=== PATIENT | female | born 2000 | race Caucasian/White ===

== ENCOUNTER 2020-12-21 10:39 | Emergency (ER) | payer BC, SELFPAY ==
[2020-12-21 10:54] VITALS: BP 118/66; PULSE 75; RESP 18; TEMP 36.9; O2SAT 100
--- NOTE | 2020-12-21 10:57 | ED.SKABFB ---
HPI - Skin/Abscess/Foreign Bdy General Chief complaint: Skin/Abscess/Foreign Body Stated complaint: rash Time Seen by Provider: 12/21/20 10:57 Source: patient and family History of Present Illness HPI narrative: PATIENT PRESENT WITH AN ITCHY RASH TO HER HANDS AND FEET . PATIENT NOTICED RASH 2 DAYS AGO. PATIENT DENIES ANY CHANGE IN LIFESTYLE. NO RESP ISSUES. PATIENT DID TRY ZYRTEC WITH MINIMAL RELIEF. PATIENT STATES THE ITCHING IS INTENSE.. MD complaint: rash Related Data Home Medications Medication Instructions Recorded Confirmed bromocriptine 2.5 mg PO DAILY 12/21/20 12/21/20 ergocalciferol (vitamin D2) 1,250 mcg PO WEEKLY 12/21/20 12/21/20 Allergies Allergy/AdvReac Type Severity Reaction Status Date / Time No Known Allergies Allergy Verified 12/21/20 10:51 Review of Systems Review of Systems: Narrative: CONSTITUTIONAL: Denies fever, chills, or sweats. EYES: Denies visual changes, redness, or discharge. ENT: Denies rhinorrhea, congestion, sore throat, or otalgia. CARDIOVASCULAR: Denies chest pain, palpitations, or edema. RESPIRATORY: Denies cough or dyspnea. GASTROINTESTINAL: Denies abdominal pain, nausea, vomiting, or diarrhea. GENITOURINARY: Denies dysuria or hematuria. SKIN: ITCHY RASH TO FINGERS AND BETWEEN FINGERS AND TO FEET. MUSCULOSKELETAL: Denies back pain, joint pain, or myalgia. NEUROLOGIC: Denies headache, numbness, or weakness. PSYCHIATRIC: Denies anxiety or depression. PMFSH Social History Social History Gender identity (if verbalized by the patient): Female Comments At time of signature, agree with nursing past medical, surgical, social and family history. There is no relevant family history pertinent to the presenting complaint Exam Narrative: Exam Narrative: GENERAL: Well-appearing, well-nourished, and in no acute distress. HEAD: Normocephalic, atraumatic. EYES: PERRLA and EOMI. ENT: Nares clear, no rhinorrhea or epistaxis. Mucous membranes moist. NECK: Supple. CHEST: Clear to auscultation. No respiratory distress. HEART: Regular rate and rhythm. No murmur heard. Normal peripheral pulses. ABDOMEN: Soft, nontender, nondistended, normal active bowel sounds. EXTREMITIES: Normal range of motion. No edema. SKIN: Warm, dry,FLUID FILLED BLISTERS ON FINGERS AND PALMS OF HANDS AND SOLES OF FEET INTENSELY ITCHY BLISTERS. NEURO: No focal deficits. Alert and oriented x3. Alan Coma Scale Eye Opening: Spontaneous 4 Cunningham Coma Scale Motor: Obeys Commands 6 Cunningham Coma Scale Verbal: Oriented 5 Alan Coma Scale Total 15 Course Vital Signs Vital signs: Vital Signs Temperature 36.9 C 12/21/20 10:54 Pulse Rate 75 12/21/20 10:54 Respiratory Rate 18 12/21/20 10:54 Blood Pressure 118/66 12/21/20 10:54 Pulse Oximetry 100 12/21/20 10:54 Temperature 36.9 C 12/21/20 10:54 Pulse Rate 75 12/21/20 10:54 Respiratory Rate 18 12/21/20 10:54 Blood Pressure 118/66 12/21/20 10:54 Pulse Oximetry 100 12/21/20 10:54 MDM - Skin/Abscess/Foreign Bdy Differential Diagnosis Differential diagnosis: Likely abscess of skin or subcutaneous tissue, viral exanthem, dermatophytosis, urticaria, herpes zoster, allergic reaction to drug, cellulitis, eczema, insect bites, impetigo and contact dermatitis Critical Care Time Critical Care Time Critical Care Time: No Discharge Plan Discharge Clinical Impression: Dermatitis, dyshidrotic Patient Disposition: Home, Self-Care Condition: Stable Instructions: Antibiotic Form, Dyshidrotic Eczema (ED) Additional Instructions: Please apply Eucerin cream 1-2 times daily. This is most effective directly after a bath when the skin is still damp to trap the moisture. For itching areas, you can apply steroid cream as prescribed by your provider. Administer Benadryl at bedtime to help with itching. FOLLOW UP WITH PRIMARY CAR PROVIDER NEEDED FOR RE EVALUATION -If you have any worsening of symptoms or any other concerns please
[2020-12-21] MEDS: methylPREDNISolone ACETATE 40 MG/ML VIAL IM (11:12)
== END 2020-12-21 11:30 | disposition home or self-care (01) ==
PROVIDERS: Emergency Provider Nurse Practitioner Family
DX: L30.1 Dyshidrosis [pompholyx] (principal); R73.03 Prediabetes
CPT/HCPCS: 96372; 99213; G0463; J1030

== ENCOUNTER 2021-09-13 11:01 | Emergency (ER) | payer BC, SELFPAY ==
[2021-09-13 11:17] VITALS: BP 111/72; PULSE 89; RESP 18; TEMP 36.6; O2SAT 100
--- NOTE | 2021-09-13 11:43 | ED.GENADULT ---
HPI - General Adult General Chief complaint: Nausea/Vomiting/Diarrhea Stated complaint: upper abdomen pain Time Seen by Provider: 09/13/21 11:43 Source: patient Mode of arrival: ambulatory Limitations: no limitations History of Present Illness HPI narrative: 20-year-old female patient presents to the [facility] with complaints of abdominal pain for the past 2 days weeks with vomiting. Patient states that she has not been able to keep much down over the past 2 weeks and states that when she does try to eat she has some epigastric pain. Patient also complaining of pain to the left side of her abdomen. Patient states her last period was May and states that she recently got her Implanon change. Denies at this time. Patient states she is also had some diarrhea. Patient does admit to drinking alcohol prior to the abdominal pain starting but states she does not consider herself a heavy drinker. Patient states she has had decreased urine output. Denies fevers, body aches or chills. Related Data Home Medications Medication Instructions Recorded Confirmed bromocriptine 2.5 mg PO DAILY 12/21/20 09/13/21 etonogestrel [Nexplanon] See Rx Instructions .ROUTE .COMPLEX 12/21/20 09/13/21 Allergies Allergy/AdvReac Type Severity Reaction Status Date / Time No Known Allergies Allergy Verified 09/13/21 11:36 Review of Systems Review of Systems: CONSTITUTIONAL: Denies fever, chills, or sweats. EYES: Denies visual changes, redness, or discharge. ENT: Denies rhinorrhea, congestion, sore throat, or otalgia. CARDIOVASCULAR: Denies chest pain, palpitations, or edema. RESPIRATORY: Denies cough or dyspnea. GASTROINTESTINAL: Positive abdominal pain, nausea, vomiting, and diarrhea. GENITOURINARY: Denies dysuria or hematuria. SKIN: Denies rash or itching. MUSCULOSKELETAL: Denies back pain, joint pain, or myalgia. NEUROLOGIC: Denies headache, numbness, or weakness. PSYCHIATRIC: Denies anxiety or depression. [facility] Past Medical History Medical History Implanon in place Social History Social History Gender identity (if verbalized by the patient): Female Comments At the time of my signature I agree with nursing past medical history, surgical, social, and family history. There is no relevant family history pertinent to the presenting complaint. Exam Narrative: GENERAL: Well-appearing, well-nourished, and in no acute distress. HEAD: Normocephalic, atraumatic. EYES: PERRLA and EOMI. ENT: Nares clear, no rhinorrhea or epistaxis. Mucous membranes moist. NECK: Supple. No lymphadenopathy CHEST: Clear to auscultation. No respiratory distress. HEART: Regular rate and rhythm. No murmur heard. Normal peripheral pulses. ABDOMEN: Soft, flat, nondistended. No guarding, rebound tenderness, or rigid. No pulsatilla masses. Bowel sounds present in all four quadrants. Tenderness noted on palpation to the epigastric area left upper quadrant and left lower quadrant. No organomegaly. Negative Askew?s sign. No periumbicial tenderness. No Supra public tenderness or distension. Good femoral pulses bilaterally. No hernia noted. No scars or surface trauma. EXTREMITIES: Normal range of motion. No edema. SKIN: Warm, dry, no rash. NEURO: No focal deficits. Alert and oriented x3. Course Course Level of Care: [facility] Visit Vital Signs Vital signs: Vital Signs Temperature 36.6 C 09/13/21 11:17 Pulse Rate 89 09/13/21 11:17 Respiratory Rate 18 09/13/21 11:17 Blood Pressure 111/72 09/13/21 11:17 Pulse Oximetry 100 09/13/21 11:17 Temperature 36.6 C 09/13/21 11:17 Pulse Rate 89 09/13/21 11:17 Respiratory Rate 18 09/13/21 11:17 Blood Pressure 111/72 09/13/21 11:17 Pulse Oximetry 100 09/13/21 11:17 Vital signs reviewed Transfer Transfered to: [facility] Transportation: Other (Private vehicle) Transfer rationale: Abdominal pain x2 weeks with vomiting Accep
== END 2021-09-13 11:57 | disposition short-term general hospital (02) ==
PROVIDERS: Emergency Provider Nurse Practitioner Family
DX: R10.12 Left upper quadrant pain (principal)
CPT/HCPCS: 81003; 81025; 99212; G0463

== ENCOUNTER 2021-09-13 12:14 | Emergency (ER) | payer BC, SELFPAY ==
--- NOTE | ~2021-09-13 | CT_ITS ---
EXAMINATION: CT abdomen pelvis w con DATE: 09/13/2021 14:19 INDICATION: Abdominal pain for 2 weeks TECHNIQUE: Computed tomography (CT) of the abdomen and pelvis was performed with 100 cc Omnipaque 350 intravenous contrast. The dose-length product was 238.97 mGy-cm. Automated exposure control and iter ative reconstruction technique were employed. COMPARISON: None. FINDINGS: Lung bases are unremarkable. Heart size normal. No significant pleural or pericardial effus ion. No significant vascular abnormality. No lymphadenopathy. The liver, spleen, pancreas, adrenal gl ands and kidneys are unremarkable. Gallbladder is present nonobstructive bowel gas pattern. No lympha denopathy. No free air or free fluid. IMPRESSION: 1. No acute abdominal abnormality. Reviewed, dictated and finalized at location A.
[2021-09-13 12:16] VITALS: BP 133/91; PULSE 96; RESP 16; TEMP 36.4; O2SAT 99
--- NOTE | 2021-09-13 12:49 | ED.NAVMDI ---
HPI - Nausea/Vomiting/Diarrhea General Chief complaint: Nausea/Vomiting/Diarrhea Stated complaint: N/V Time Seen by Provider: 09/13/21 12:18 Source: RN notes reviewed History of Present Illness HPI Narrative: Patient presents emergency department from urgent care for abdominal pain. Patient has abdominal pain for the past 2 weeks. The pain is located left upper abdomen radiates down the left lower abdomen described as aching in nature. States is associate with nausea, vomiting, diarrhea. She denies any fevers or chills, denies any chest pain shortness of breath or any other symptoms. States she not take any medication for the symptoms today Related Data Home Medications Medication Instructions Recorded Confirmed bromocriptine 2.5 mg PO DAILY 12/21/20 09/13/21 etonogestrel [Nexplanon] See Rx Instructions .ROUTE .COMPLEX 12/21/20 09/13/21 Allergies Allergy/AdvReac Type Severity Reaction Status Date / Time No Known Allergies Allergy Verified 09/13/21 11:36 Review of Systems Review of Systems: Gen.: Denies fevers or chills ENT: Denies congestion Respiratory: Denies shortness of breath or cough CV: Denies chest pain or palpitations GI: See HPI Musculoskeletal: Denies back pain or muscle pain Neuro: Denies numbness, tingling, weakness or focal weakness Skin: Denies rash Except as documented, all other systems reviewed and negative [facility] Past Medical History Medical History Implanon in place Social History Social History (Updated 09/13/21 @ 12:50 by Vitaliy Torrez DO) Smoking status: Never smoker Gender identity (if verbalized by the patient): Female Exam Narrative: APPEARANCE: No acute distress, nontoxic, resting in bed HEENT: Normocephalic, atraumatic, OMM RESPIRATORY: No respiratory distress, clear to auscultation bilaterally with no rhonchi wheezing or rales CARDIOVASCULAR: RRR s murmur ABDOMINAL: Soft nondistended tender palpation left lower quadrant left lower quadrant no tenderness right upper quadrant right lower quadrant no rebound or guarding MUSCULOSKELETAl: Moves all extremities. No clubbing, cyanosis or edema. NEURO: Awake and alert. Following commands, speech normal, no focal deficits SKIN:: Warm, dry. Normal Color PSYCHIATRIC: Normal affect/mood Course Course Emergency Course: Patient states that they are feeling much better at this time. States abdominal pain has improved. Repeat abdominal exam shows the patient's abdomen to be soft with no surgical abdomen present. Discussed with patient results of workup and diagnosis. Discussed need for follow-up with primary care physician, reasons to return to the emergency department in proper use of medication. Patient understands and agrees to current treatment plan Vital Signs Vital signs: Vital Signs Temperature 97.6 F 09/13/21 12:16 Pulse Rate 96 09/13/21 12:16 Respiratory Rate 16 09/13/21 12:16 Blood Pressure 133/91 H 09/13/21 12:16 Pulse Oximetry 99 09/13/21 12:16 Temperature 97.6 F 09/13/21 12:16 Pulse Rate 61 09/13/21 14:48 Respiratory Rate 20 09/13/21 14:48 Blood Pressure 107/73 09/13/21 14:48 Pulse Oximetry 100 09/13/21 14:48 MDM - Nausea/Vomiting/Diarrhea MDM Narrative Medical decision making narrative: Patient's abdomen is soft without significant pain or signs of surgical abdomen on serial exams. Lab and x-ray evaluations are reviewed and patient is felt to be a reasonable candidate for outpatient management. Patient was instructed as to limitations of x-ray and laboratory evaluation and encouraged to return to ED or primary physician for repeat exam in 12 hours if continued or worsening pain Lab Data Result diagrams: 09/13/21 12:32 09/13/21 12:32 Labs: Lab Results 09/13/21 09/13/21 09/13/21 Range/Units 12:32 12:32 12:34 WBC 7.7 (4.5-10.0) K/mm3 RBC 5.29 (4.2-5.4) M/mm3 Hgb 16.3 H (12.0-15.0) g/dL Hct 47.8 H (37.0-47.0) % MCV 90.4
[2021-09-13 12:50] LABS: Basophils Percent Auto 0.3 % (0.2-1.2); Eosinophils Absolute Auto 0.1 K/mm3 (0-0.3); Eosinophils Percent Auto 0.8 % (0-4.4); Hematocrit 47.8 % (37.0-47.0); Hemoglobin 16.3 g/dL (12.0-15.0); Immature Granulocyte Absolute 0.01 K/mm3 (0.00-0.031); Immature Granulocyte Percent A 0.1 % (0-0.5); Lymphocytes Absolute Auto 2.87 K/mm3 (0.9-3.2); Lymphocytes Percent Auto 37.5 % (18.3-44.2); Mean Corpuscular HGB Conc 34.1 g/dl (32-36); Mean Corpuscular Hemoglobin 30.8 pg (26-34); Mean Corpuscular Volume 90.4 fl (80-100); Mean Platelet Volume 8.9 fl (7.4-10.4); Monocytes Absolute Auto 0.4 K/mm3 (0.1-0.6); Monocytes Percent Auto 5.2 % (2.6-8.5); Neutrophils Absolute Auto 4.3 K/mm3 (1.3-6.7); Neutrophils Percent Auto 56.1 % (45.5-73.1); Platelet Count Result 387 k/mm3 (150-375); Red Blood Count 5.29 M/mm3 (4.2-5.4); Red Cell Distribution Width 11.9 % (11.5-14.5); White Blood Count 7.7 K/mm3 (4.5-10.0)
[2021-09-13] MEDS: SODIUM CHLORIDE 0.9% IV 1,000 ML 999 ML IV CONT (12:56)
[2021-09-13] MEDS: ONDANSETRON INJ 4 MG/2 ML VIAL IV PUSH (12:56)
[2021-09-13 13:23] LABS: Add Urine Microscopic? YES; Appearance Urine Cloudy (Clear); Bacteria Urine Trace /hpf; Bilirubin Urine Negative (Negative); Blood Urine Negative (Negative); Color Urine Amber (Yellow); Glucose Urine UA Negative (Negative); Ketones Urine Trace mg/dL (Negative); Leukocyte Esterase Ur 3+ LEU/UL (Negative); Mucus Urine Few /lpf; Nitrate Urine Negative (Negative); Protein Urine 1+ mg/dL (Negative); Squamous Epithelial Cell Urine Many /hpf (Few); Urobilinogen Urine Negative mg/dL (<2.0); WBC Urine 16-20 /hpf
[2021-09-13 13:23] LABS: Alanine Aminotransferase 26 U/L (4-35); Albumin Level 4.8 g/dL (3.5-5.1); Alkaline Phosphatase 68 U/L (38-126); Anion Gap 9 mmol/L (8-16); Aspartate Amino Transferase 39 U/L (14-36); Bilirubin,Total 0.8 mg/dL (0.2-1.3); Blood Urea Nitrogen 13 mg/dL (7-17); Calcium 9.1 mg/dL (8.4-10.2); Carbon Dioxide 26 mmol/L (22-30); Chloride 103 mmol/L (98-107); Estimated Glomerular Filt Rate > 60; Glucose 106 mg/dL (65-110); Lipase 73 U/L (23-300); Potassium 3.3 mmol/L (3.4-5.0); Sodium 138 mmol/L (137-145)
[2021-09-13 13:37] LABS: Specific Grav Ur 1.033 (1.001-1.035)
[2021-09-13 14:48] VITALS: BP 107/73; PULSE 61; RESP 20; O2SAT 100
[2021-09-13] MEDS: CEPHALEXIN 500 MG CAPSULE PO (16:20)
[2021-09-13] MEDS: PANTOPRAZOLE SODIUM IV 40 MG VIAL IV PUSH (16:20)
[2021-09-13 16:24] VITALS: BP 134/78; PULSE 62; RESP 20; O2SAT 99
== END 2021-09-13 16:24 | disposition home or self-care (01) ==
PROVIDERS: Emergency Provider Emergency Medicine
DX: N39.0 Urinary tract infection, site not specified (principal); R10.13 Epigastric pain
CPT/HCPCS: 36415; 74177; 80053; 81001; 81003; 81025; 83690; 85025; 87086; 87088; 96361; 96365; 96375; 99284; A9270; C9113; J0131; J2405; J7030; Q9967

== ENCOUNTER 2021-12-11 13:14 | Emergency (ER) | payer BC, SELFPAY ==
--- NOTE | 2021-12-11 13:18 | ED.SKABFB ---
HPI - Skin/Abscess/Foreign Bdy General Chief complaint: Skin/Abscess/Foreign Body Stated complaint: Animal Bite Rt Hand Time Seen by Provider: 12/11/21 13:26 Source: patient, RN notes reviewed and old records reviewed Mode of arrival: ambulatory Limitations: no limitations History of Present Illness HPI narrative: 21-year-old female presents to the [facility] with a cat bite to the right hand yesterday. States that it was an acquaintance's cat is up-to-date on all shots. Bite to the medial aspect of hand between his first and second finger. Swelling, redness noted circumferential of the second finger, hands with streaking up to the axilla of right side. Patient states she was bit approximately 1330 yesterday. Puncture wounds noted. Patient reports being up-to-date on all immunizations. Patient reports unknown blood disorder, requesting blood work to be done, unable to do in the [facility]. Has taken Benadry. Onset (ago): hour(s) (24) Location: R hand Severity scale (1-10): 10 Pain Consistency: constant Relieving factors: none Exacerbating factors: none Related Data Home Medications Medication Instructions Recorded Confirmed etonogestrel 68 mg subdermal See Rx Instructions .Route .COMPLEX 12/21/20 09/13/21 implant (Nexplanon) Allergies Allergy/AdvReac Type Severity Reaction Status Date / Time No Known Allergies Allergy Verified 12/11/21 14:08 Review of Systems Review of Systems: All systems reviewed & are unremarkable except as noted in HPI and below Constitutional: Constitutional: Reports no additional constitutional complaints, Denies chills and Denies fever(s) Eyes: Eyes: Reports no additional eye complaints ENT: Reports system reviewed and no additional complaints, except as documented Cardiovascular: Cardiovascular: Reports no additional cardiovascular complaints Respiratory: Respiratory: Reports no additional respiratory complaints Gastrointestinal: Gastrointestinal: Reports no additional gastrointestinal complaints Musculoskeletal: Musculoskeletal: Reports as per HPI (decreased ROM finger 2nd. Numbness right 5th finger) Integumentary/Breasts: Skin/Breast: Reports as per HPI and Reports erythema (Right hand) Neurologic: Reports system reviewed and no additional complaints, except as documented Psychiatric: Psychiatric: Reports no additional psychiatric complaints Allergic/Immunologic: Allergic/Immunologic: Reports no additional allergic/immunologic complaints PMFSH Past Medical History Medical History Blood disorder per patient, Unknown specific Implanon in place Surgical History Surgical History (Updated 12/11/21 @ 13:36 by Marisa Hansen APRN) No history of previous surgery Social History Social History Smoking status: Never smoker Gender identity (if verbalized by the patient): Female Comments At the time of my signature, I reviewed and agree with the nursing past medical, surgical, social, and family history. There is no relevant family history pertinent to the patient complaint. Exam Const: General: healthy appearing, no acute distress and alert Nutritional Appearance: well nourished Orientation/consciousness: patient oriented x3 Limitations: no limitations HENMT: Head: normal to inspection Ears: external ears normal Eyes: General: appearance normal, both eyes and all related structures Pupils: Equal, round and reactive pupils present Neck: Neck: normal visual inspection, no lymphadenopathy and no meningeal signs Chest: Chest palpation & inspection: normal inspection of the chest Resp: Effort & Inspection: normal respiratory effort and no use of accessory muscles Auscultation: clear to auscultation bilaterally, no crackles, no rales, no rhonchi and no wheezes Cardio: Rate: regular rate Rhythm: regular rhythm Back/Spine/Pelvis: Cervical Spine: normal cervical lordosis Thoracic/Lumbar Spi
[2021-12-11 13:26] VITALS: BP 119/74; PULSE 113; RESP 18; TEMP 36.9; O2SAT 97
== END 2021-12-11 13:33 | disposition short-term general hospital (02) ==
PROVIDERS: Emergency Provider Nurse Practitioner
DX: S61.431A Puncture wound without foreign body of right hand, initial encounter (principal); L03.113 Cellulitis of right upper limb; W55.01XA Bitten by cat, initial encounter; L03.011 Cellulitis of right finger; R73.03 Prediabetes
CPT/HCPCS: 99212; G0463

== ENCOUNTER 2021-12-11 13:55 | Observation (INO) | payer BC, SELFPAY ==
--- NOTE | ~2021-12-11 | XR_ITS ---
XR hand RT min 3V DATE: 12/11/2021 15:01 INDICATION: Cat bite. Swelling and second metacarpal area. TECHNIQUE: 3 views COMPARISON: None FINDINGS: There is soft tissue swelling of the hand, particularly at the dorsal metacarpal area. No fracture, dislocation, periosteal reaction or bone destruction, erosive change or chondrocalcinosi s. Joint spaces are preserved. IMPRESSION: Soft tissue swelling Reviewed, dictated and finalized at location A. IMPRESSION: Soft tissue swelling
[2021-12-11 14:03] VITALS: BP 129/78; PULSE 80; RESP 16; TEMP 36.2; O2SAT 96
--- NOTE | 2021-12-11 14:24 | ED.ANIMALBIT ---
HPI - Animal Bite General Chief Complaint: Animal Bite Stated Complaint: cat bite Time Seen by Provider: 12/11/21 14:17 History of Present Illness HPI narrative: 21-year-old female presents to the ER today for evaluation of a cat bite to the right hand. She was bitten by her friend's cat yesterday. The cat is up-to-date on vaccinations. She started having swelling in the right hand and she now has red streaks going up her right arm to her armpit. Hand is very tender. She has not had any fever or chills. No nausea or vomiting. She was seen at an urgent care earlier today and sent to the ER for further evaluation due to the severity of the swelling in her hand. Related Data Home Medications Medication Instructions Recorded Confirmed etonogestrel 68 mg subdermal 1 mg DIRECTED 12/21/20 09/13/21 implant (Nexplanon) Allergies Allergy/AdvReac Type Severity Reaction Status Date / Time No Known Allergies Allergy Verified 12/11/21 14:08 Review of Systems Review of Systems: CONSTITUTIONAL: Denies fever, chills, or sweats. EYES: Denies visual changes, redness, or discharge. ENT: Denies rhinorrhea, congestion, sore throat, or otalgia. CARDIOVASCULAR: Denies chest pain, palpitations, or edema. RESPIRATORY: Denies cough or dyspnea. GASTROINTESTINAL: Denies abdominal pain, nausea, vomiting, or diarrhea. GENITOURINARY: Denies dysuria or hematuria. SKIN: As per HPI MUSCULOSKELETAL: Denies back pain, joint pain, or myalgia. NEUROLOGIC: Denies headache, numbness, dizziness, or weakness. PSYCHIATRIC: Denies anxiety or depression. PMFSH Past Medical History Medical History Blood disorder per patient, Unknown specific Implanon in place Surgical History Surgical History No history of previous surgery Social History Social History Smoking status: Never smoker Gender identity (if verbalized by the patient): Female Exam Narrative: GENERAL: Well-appearing, well-nourished, and in no acute distress. HEAD: Normocephalic, atraumatic. EYES: PERRLA and EOMI. NECK: Supple. No adenopathy or masses. No carotid bruits or JVD CHEST: Clear to auscultation. No respiratory distress. No wheezes rales or rhonchi HEART: Regular rate and rhythm. No murmur heard. Normal peripheral pulses. ABDOMEN: Soft, nontender, nondistended, normal active bowel sounds. EXTREMITIES: Moderate swelling and erythema to right hand SKIN: small puncture site between index finger and thumb of right hand, erytematous streaks tracking up right arm NEURO: No focal deficits. Alert and oriented x3. PSYCH: Normal mood and affect. Course Course Emergency Course: 1544 Discussed with Kyung BAUM, accepting patient for admission. Vital Signs Vital signs: Vital Signs Temperature 36.2 C L 12/11/21 14:03 Pulse Rate 80 12/11/21 14:03 Respiratory Rate 16 12/11/21 14:03 Blood Pressure 129/78 12/11/21 14:03 Pulse Oximetry 96 12/11/21 14:03 Oxygen Delivery Room Air 12/11/21 14:03 Temperature 36.2 C L 12/11/21 14:03 Pulse Rate 80 12/11/21 14:03 Respiratory Rate 16 12/11/21 14:03 Blood Pressure 129/78 12/11/21 14:03 Pulse Oximetry 96 12/11/21 14:03 Oxygen Delivery Room Air 12/11/21 14:03 MDM - Animal Bite Lab Data Attestation: I reviewed the patient's lab results. Result diagrams: 12/11/21 14:38 12/11/21 14:38 Labs: Lab Results 12/11/21 12/11/21 12/11/21 Range/Units 14:38 14:38 14:38 WBC 26.1 H (4.5-10.0) K/mm3 RBC 4.98 (4.2-5.4) M/mm3 Hgb 15.0 (12.0-15.0) g/dL Hct 44.4 (37.0-47.0) % MCV 89.2 (80-100) fl MCH 30.1 (26-34) pg MCHC 33.8 (32-36) g/dl RDW 12.8 (11.5-14.5) % Plt Count 301 (150-375) k/mm3 MPV 9.2 (7.4-10.4) fl Immature Gran % (Auto) Not Reportable Neut % (Auto) Not Reportable Lymph
[2021-12-11 15:02] LABS: Hematocrit 44.4 % (37.0-47.0); Mean Corpuscular HGB Conc 33.8 g/dl (32-36); Mean Corpuscular Hemoglobin 30.1 pg (26-34); Mean Corpuscular Volume 89.2 fl (80-100); Mean Platelet Volume 9.2 fl (7.4-10.4); Platelet Count Result 301 k/mm3 (150-375); Red Blood Count 4.98 M/mm3 (4.2-5.4); Red Cell Distribution Width 12.8 % (11.5-14.5); White Blood Count 26.1 K/mm3 (4.5-10.0)
[2021-12-11 15:13] LABS: Lactic Acid Reflex 1.4 mmol/L (0.7-2.0)
[2021-12-11 15:15] LABS: Alanine Aminotransferase 17 U/L (6-35); Albumin Level 4.8 g/dL (3.5-5.1); Alkaline Phosphatase 62 U/L (38-126); Anion Gap 11 mmol/L (8-16); Aspartate Amino Transferase 24 U/L (14-36); Bilirubin,Total 1.4 mg/dL (0.2-1.3); Blood Urea Nitrogen 11 mg/dL (7-17); CRP 6.3 mg/dL (<1.0); Calcium 8.9 mg/dL (8.4-10.2); Carbon Dioxide 23 mmol/L (22-30); Chloride 102 mmol/L (98-107); Estimated Glomerular Filt Rate > 60; Glucose 112 mg/dL (65-110); Potassium 3.5 mmol/L (3.4-5.0); Sodium 136 mmol/L (137-145)
[2021-12-11 15:24] LABS: Band Neutrophils Percent 5 % (0-6); Lymphocytes Absolute Manual 2.34 K/mm3 (1.1-4.5); Metamyelocytes Percent 1 %; Monocytes Absolute Manual 1.56 K/mm3 (0.1-0.90); Monocytes Percent Manual 6 % (3-9); Neutrophils Absolute Manual 21.92 K/mm3 (1.7-7.2); Neutrophils Percent Manual 79 % (46-73); Platelet Estimate Adequate (Adequate); Total Cells Counted 100
[2021-12-11] MEDS: AMPICILLIN SULB 3 GM/NS 100 ML 3 GM/100 ML VIAL IVPB (16:01)
[2021-12-11 16:06] VITALS: BP 130/84; PULSE 84; RESP 16; O2SAT 99
--- NOTE | 2021-12-11 16:30 | PM.IMHP ---
H&P: HPI History of Present Illness Date/Time: 12/11/21 16:30 Chief Complaint: Cat bite. Narrative: This is a 21-year-old female smoker who presented to the ED for evaluation of a cat bite. Yesterday afternoon she was bitten on the right hand by a house cat (up-to-date on vaccinations) and she thinks there were 5 puncture wounds. They bled for a short period of time and thereafter she cleaned it with hydrogen peroxide and soap and water. Last evening she noticed some swelling in the hand and this morning the swelling had progressed. She has also noticed that her hand is red and warm to touch, with red streaks up the arm. She has some tingling in the fingers but no numbness. Range of motion is a bit limited due to swelling. She reports chills earlier but she has not had a fever to her knowledge. Review of Systems Review of Systems: Twelve systems were reviewed. She is supposed to be on bromocriptine as she has a pituitary adenoma but it does not sound as though she has been taking that for a while. No headaches or vertigo. No fever. No cold or flu symptoms. No history of venous thromboembolism though she does report having an MTHFR mutation. Except as documented, all other systems were reviewed and are negative. [facility] Past Medical History Medical History Implanon in place MTHFR mutation Pituitary adenoma Tobacco use Surgical History Surgical History No history of previous surgery Family History Family History Other MTHFR mutation Social History Social History (Updated 12/11/21 @ 23:46 by Kyung Lau PA-C) Social History: She designates her mother as her surrogate decision maker. Code status: Full code. Smoking packs per day: 0.5 Smoking cigarettes per day: 10.0 Years smoked: 4 Smoking pack-years: 2.00 Smoking status: Current every day smoker Meds Home Medications and Allergies Home Medications Medication Instructions Recorded Confirmed Type etonogestrel 68 mg subdermal 1 mg DIRECTED 12/21/20 09/13/21 History implant (Nexplanon) Allergies Allergy/AdvReac Type Severity Reaction Status Date / Time No Known Allergies Allergy Verified 12/11/21 14:08 Vital Signs Vital Signs - 24 hr 12/11/21 14:03 12/11/21 16:06 Temperature 97.1 F L Pulse Rate 80 84 Respiratory Rate 16 16 Blood Pressure 129/78 130/84 Pulse Oximetry 96 99 Oxygen Delivery Room Air Exam Narrative: General: Well-developed female sitting up in bed. Non-toxic in appearance. HEENT: PERRL, EOMI. Sclerae anicteric. Oral mucosa moist. Oropharynx clear. Neck: Supple. Respiratory: Lungs are clear to auscultation bilaterally. Cardiovascular: Regular rate and rhythm with S1-S2. Gastrointestinal: Abdomen is soft, nontender, and nondistended with positive bowel sounds. Skin: Warm and dry. Visible puncture wounds on the thenar space. One puncture concetta looked like a small pustule but there was no drainage when unroofed. Surrounding skin is erythematous, edematous, and warm. Range of motion in the right 3-5 fingers is limited due to reactive edema. Lymphangitic streaking noted up to the right axilla, where there is tender lymphadenopathy. Extremities: No cyanosis or clubbing. Edema of the right hand as detailed above. No lower lower extremity edema. Radial and pedal pulses intact. Neurological: Alert. Cranial nerves 2-12 are grossly intact. No gross focal deficits to casual conversation. Psychiatric: Pleasant and cooperative with normal mood and affect. H&P: Results Labs Labs: Short CBC 12/11/21 Range/Units 14:38 WBC 26.1 H (4.5-10.0) K/mm3 Hgb 15.0 (12.0-15.0) g/dL Hct 44.4 (37.0-47.0) % Plt Count 301 (150-375) k/mm3 [facility] 12/11/21 14:38 Sodium 136 L Potassium 3.5 Chloride 102 Carbon Dioxide 23 BUN 11 Creatinine 0.60 L Glucose 112 H
--- NOTE | 2021-12-11 17:22 | PC.NURSE ---
patient wants to go smoke. patient upset that she can not leave the floor to smoke. patient wants to leave AMA. Kyung notified. stock broker supervisor Abigail notified.
--- NOTE | 2021-12-11 17:29 | PC.NURSE ---
Patient sitting on side of bed upon RN's arrival. RN asked if patient had eaten dinner and patient replied, no, I'm fine . RN explained cafeteria would be closing soon but box lunches we/re available after hours. Patient stated again, I'm fine, I don't need anything right now . RN asked patient to rate her pain level and she stated it was 8/10 on the pain scale. RN reviewed available medications and patient did not have any medications available for pain. RN offered to contact prescriber for medication and patient and mother refused medications, stated, we don't take pills'. Patient then asked if she could go outside to smoke , RN informed patient this is a smoke free campus. Patient's mother then asked if she could go outside to the car , RN informed her patient can not leave the building with IV access intact. Patient then stated, this is bullshit, why did they keep me just so they can watch me, this is stupid and I want to leave . RN advised patient and her mother she is able to sign a form stating she was leaving against medical advice and RN would remove IV access at that time. Patient stated that she wanted to leave against medical advice, form was signed and IV access removed intact.
== END 2021-12-11 17:25 | disposition left against medical advice (07) ==
LOC: ANHED 16:11 → ANH3MEDSUR 16:38
PROVIDERS: Admitting Provider Chiropractor; Emergency Provider Nurse Practitioner Family; Visit Provider Chiropractor
DX: S61.451A Open bite of right hand, initial encounter (principal); W55.01XA Bitten by cat, initial encounter; L03.011 Cellulitis of right finger; L03.113 Cellulitis of right upper limb; F17.210 Nicotine dependence, cigarettes, uncomplicated; Z53.29 Procedure and treatment not carried out because of patient's decision for other reasons
CPT/HCPCS: 36415; 73130; 80053; 83605; 85025; 86140; 87040; 96374; 99285; G0378; J0295